=== PATIENT | female | born 1955 | race Caucasian/White ===

== ENCOUNTER → 2020-05-25 | Outpatient (CLI) | payer BC | LOC: COL.VAS 09:41 | DX: M79.662 Pain in left lower leg (principal); R60.0 Localized edema; Z96.642 Presence of left artificial hip joint ==

== ENCOUNTER → 2020-11-25 | Outpatient (CLI) | payer BC | LOC: COL.RAD 11-24 09:00 | DX: G95.0 Syringomyelia and syringobulbia (principal); M50.322 Other cervical disc degeneration at C5-C6 level; M48.02 Spinal stenosis, cervical region ==

== ENCOUNTER → 2020-12-02 | Outpatient (CLI) | payer BC | LOC: MC.RAD 10:41 | DX: Z12.31 Encounter for screening mammogram for malignant neoplasm of breast (principal) ==